=== PATIENT | male | born 1960 | race African-American/Black ===

== ENCOUNTER → 2018-06-02 | Outpatient (CLI) | payer MEDICARE ==
--- NOTE | 2018-06-02 11:11 | Diagnostic Imaging Report ---
PROCEDURE: L-SPINE COMPLETE COMPARISON: None. INDICATIONS: LOW BACK PAIN FINDINGS: There is no fracture or dislocation. Severe disc space narrowing at L5-S1 is present. There is anterior listhesis of L5 on S1 grade 2/4. 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 Aortic vascular calcification is noted. The paraspinal soft tissues are normal. CONCLUSION: Severe degenerative changes at L5-S1. Mohan He D.O. Dictated by: Mohan He D.O. on 06/02/2018 at 11:22 Electronically approved by: Mohan He D.O. on 06/02/2018 at 11:22
== END ==
LOC: RAD 09:08
PROVIDERS: ATTEND Family Medicine
DX: M54.5 Low back pain (principal)
CPT/HCPCS: 72110